=== PATIENT | male | born 1975 | race Caucasian/White ===

== ENCOUNTER 2019-02-23 13:56 | Emergency (ER) | payer OTHER ==
[~2019-02-23] VITALS: Ht 195.6 cm; Wt 113.4 kg
[2019-02-23 14:34] LABS: ABSOLUTE LYMPHOCYTES 1.6 thou/uL (0.8-5.3); ABSOLUTE MONOCYTES 0.4 thou/uL (0.0-1.2); ABSOLUTE NEUTROPHILS 2.8 thou/uL (1.6-8.1); BASOPHILS 0.8 %; EOSINOPHILS 0.5 %; HEMATOCRIT 46.7 % (42.0-52.0); LYMPHOCYTES 32.7 %; MCH 35.1 pg (26.0-34.0); MCHC 34.2 g/dL (28.0-37.0); MCV 102.4 fL (80.0-100.0); MPV 7.7 fl. (7.2-11.1); NUCLEATED RBCS 0 /100WBC; PLATELET COUNT* 210 thou/uL (150-400); RBC 4.56 mil/uL (4.50-6.00); RDW-CV 13.6 % (10.5-14.5); WBC 4.9 thou/uL (4.0-11.0)
[2019-02-23 14:38] VITALS: BP 136/101
[2019-02-23 14:43] LABS: ANION GAP 10 mmol/L (7-16); BUN 12 mg/dL (7-18); CALCIUM 7.8 mg/dL (8.5-10.1); CHLORIDE 102 mmol/L (98-107); CO2 26 mmol/L (21-32); GLUCOSE 145 mg/dL (70-99); POTASSIUM 3.4 mmol/L (3.5-5.1); SODIUM 138 mmol/L (136-145)
[2019-02-23 14:55] LABS: ALBUMIN 2.6 g/dL (3.4-5.0); ALKALINE PHOSPHATASE 190 U/L (46-116); LIPASE 205 U/L (73-393); SGOT 221 U/L (15-37); SGPT 173 U/L (30-65); TOTAL BILIRUBIN 1.5 mg/dL (<0.1-1.0); TOTAL PROTEIN 7.2 g/dL (6.4-8.2); TROPONIN-I LEVEL <0.06 ng/mL (<0.06)
--- NOTE | 2019-02-25 09:30 | EKG ---
[place] [address] ELECTROCARDIOGRAM REPORT Name: BRANDY DINH Room: [facility]#: [id number] Admission: 02/23/19 Attend Phys: Discharge: 02/23/19 Date of : 71 Report #: [id number] THIS REPORT FOR: //name// [facility] ED Test Date: 2019-02-23 Test Time: 14:12:43 Pat Name: BRANDY DINH Department: Room: Gender: M Lead Caster: TDOWNS : 1975 Requested By: Theron Alejandro Order Number: [id number] MD: Abran Roper Measurements Intervals [place] Rate: 107 P: 66 CO: 129 QRS: 60 QRSD: 88 T: 63 QT: 318 QTc: 425 Interpretive Statements Sinus tachycardia Compared to ECG 03/01/2010 15:39:29 Sinus rhythm no longer present ST (T wave) deviation no longer present Electronically Signed On 02-25-2019 9:30:19 CDT by Abran Roper [email or web address] <ELECTRONICALLY SIGNED> By: Abran Roper MD, [facility] 02/25/19 0930 1412 11 Abran Roper MD, [facility] /EPI
== END 2019-02-23 14:38 ==
LOC: M.ERS 13:56
PROVIDERS: Family Medicine
DX: F10.129 Alcohol abuse with intoxication, unspecified (principal); Y90.8 Blood alcohol level of 240 mg/100 ml or more; R10.9 Unspecified abdominal pain; F32.9 Major depressive disorder, single episode, unspecified; G89.29 Other chronic pain; M54.9 Dorsalgia, unspecified; F17.210 Nicotine dependence, cigarettes, uncomplicated